=== PATIENT | female | born 1945 | race Caucasian/White ===

== ENCOUNTER → 2017-01-26 | Outpatient (CLI) | payer OTHER ==
[~2017-01-26] MED LIST: BACL20 PO; CART240C4 PO; EFFE150C PO; NEUR100C PO; SIMV20 PO; ZOFR4TAB3 PO
--- NOTE | 2017-01-26 14:54 | RADRPT ---
EXAM DATE/TIME: 01/26/2017 00:00 [place] COMPARISON: No previous studies available for comparison. INDICATIONS : Back Pain, Lower Leg Aching and Numbness TECHNIQUE: Five-station segmental examination of the lower extremities was performed pre and post extercise. Pulsed-cuff waveform tracings and pressures were recorded. Ankle-brachial indices and toe-brachial indices were calculated. PRESSURES (mmHg): Pre Exercise: Brachial (arm): Right 166 Left 162 Ankle: Right 177 Left 189 LUBNA: Right 1.07 Left 1.14 TBI: Right 0.77 Left 0.73 Post Exercise: Brachial (arm): Right 169 Ankle: Right 182 Left 171 PULSED CUFF WAVEFORMS: Demonstrate normal amplitude bilaterally. CONCLUSION: 1. Normal LUBNA bilaterally. 2. Slightly diminished TBI bilaterally Reilly Frederick MD on January 26, 2017 at 14:48 Board Certified Radiologist. This report was verified electronically.
== END ==
LOC: HCAV 12:24
PROVIDERS: ATTEND Internal Medicine Gastroenterology
DX: M54.5 Low back pain (principal)
CPT/HCPCS: 93924